=== PATIENT | female | born 2000 | race Caucasian/White ===

== ENCOUNTER 2022-04-08 13:46 | Emergency (ER) | payer OTHER ==
[2022-04-08 13:56] VITALS: BP 128/85; PULSE 98; RESP 16; TEMP 97.4
--- NOTE | 2022-04-08 14:29 | ED ---
Psych HPI - General Chief Complaint: Psychiatric Symptoms Stated Complaint: Mental health eval Time Seen by Provider: 04/08/22 13:57 Source: patient Mode of arrival: ambulatory - History of Present Illness Initial Comments: Patient is a 21-year-old female presenting for mental health evaluation. Patient has recently been experiencing difficulty coping after stressful life events. Patient was recently in 10 day outpatient program for increased anxiety and depression, she was started on Geodon. When she followed up with her psychiatrist after this program she was taken off of Geodon and started on Depakote. Patient states that "I just want to give up". She denies any suicidal thoughts or plan, no homicidal ideation. No hallucinations. No physical complaints at this time. - Related Data Previous Rx's Medication Instructions Recorded LORazepam [Ativan] 1 mg PO HS 3 Days #3 tab 04/08/22 Allergies Allergy/AdvReac Type Severity Reaction Status Date / Time No Known Allergies Allergy Verified 04/08/22 13:56 Review of Systems ROS Statement: Those systems with pertinent positive or pertinent negative responses have been documented in the HPI. ROS Other: All systems not noted in ROS Statement are negative. Past Medical History Past Medical History: No Reported History History of Any Multi-Drug Resistant Organisms: None Reported Past Surgical History: No Surgical Hx Reported Past Psychological History: Anxiety, Bipolar, Depression Smoking Status: Never smoker Past Alcohol Use History: None Reported Past Drug Use History: None Reported General Exam Limitations: no limitations General appearance: alert, anxious (tearful) Head exam: Present: atraumatic, normocephalic, normal inspection Eye exam: Present: normal appearance Neck exam: Present: normal inspection Respiratory exam: Present: normal lung sounds bilaterally. Absent: respiratory distress, wheezes, rales, rhonchi, stridor Cardiovascular Exam: Present: regular rate, normal rhythm, normal heart sounds. Absent: systolic murmur, diastolic murmur, rubs, gallop, clicks Extremities exam: Present: normal inspection, full ROM Neurological exam: Present: alert, oriented X3, CN II-XII intact Psychiatric exam: Present: anxious Skin exam: Present: warm, dry, intact, normal color. Absent: rash Course Vital Signs 04/08/22 13:51 Temperature 97.4 F L Pulse Rate 98 Respiratory 16 Rate Blood Pressure 128/85 O2 Sat by Pulse 97 Oximetry Medical Decision Making - Medical Decision Making Patient is a 21-year-old female presenting for mental health evaluation. She's been experiencing increased anxiety and depression. No suicidal ideation or homicidal ideation. Patient has no physical complaints at this time. Physical examination was unremarkable. UA and urine hCG are negative. Urine toxicology is positive for THC. Patient was evaluated by EPS, it was decided that she will follow-up with her psychiatrist outpatient setting to address medication changes, she woke be provided with a short course of Ativan for increased anxiety. Follow-up with PCP. Report back to ER with any new or worsening symptoms. Discussed return parameters and answered all questions. Patient conveyed verbal understanding and agreed to the plan. I discussed this case in detail with my attending Dr. Hunt - Lab Data Lab Results 04/08/22 04/08/22 04/08/22 Range/Units 14:40 14:40 14:40 Urine Color Light Yellow Urine Appearance Clear (Clear) Urine pH 6.5 (5.0-8.0) Ur Specific [place] 1.014 (1.001-1.035) Urine Protein Negative (Negative) Urine Glucose (UA) Negative (Negative) Urine Ketones Negative (Negative) Urine Blood Negative (Negative) Urine Nitrite Negative (Negative) Urine Bilirubin Negative (Negative) Urine Urobilinogen <2.0 (<2.0) mg/dL Ur Leukocyte Esterase Negative (Negative) Urine HCG, Qual Not Detected (Not Detectd) Urine Opiates Screen Not Detected (NotDetected) Ur Oxycodone Screen Not Detected (NotDetected) Urine Methadone Screen Not Detected (NotDetected) Ur Propoxyphene Screen Not Detected (NotDetected) Ur Barbiturates Screen Not Detected (NotDetected) U Tricyclic Antidepress Not Detected (NotDetected) Ur Phencyclidine Scrn Not Detected (NotDetected) Ur Amphetamines Screen Not Detected (NotDetected) U Methamphetamines Scrn Not Detected (NotDetected) U Benzodiazepines Scrn Not Detected (NotDetected) Urine Cocaine Screen Not Detected (NotDetected) U Marijuana (THC) Screen Detected H (NotDetected) Disposition Clinical Impression: Acute anxiety Disposition: HOME SELF-CARE Condition: Good Instructions (If sedation given, give patient instructions): Depression (ED), Anxiety (ED), Anxiolysis in Adults (ED) Additional Instructions: Follow-up with psychiatrist. Report back to ER with any new or worsening symptoms. Take medication as prescribed. Prescriptions: LORazepam [Ativan] 1 mg PO HS 3 Days #3 tab Is patient prescribed a controlled substance at d/c from ED?: No Referrals: Nonstaff,Physician [REFERRING] - 1-2 days Time of Disposition: 17:41
[2022-04-08 14:44] LABS: Appearance,Urine Clear (Clear); Bilirubin,Urine Negative (Negative); Blood,Urine Negative (Negative); Color,Urine Light Yellow; Glucose,Urine (UA) Negative (Negative); Ketones,Urine Negative (Negative); Leukocyte Esterase,Urine Negative (Negative); Nitrite,Urine Negative (Negative); PH, Urine 6.5 (5.0-8.0); Protein,Urine Negative (Negative); Specific Gravity,Urine 1.014 (1.001-1.035); Urobilinogen,Urine <2.0 mg/dL (<2.0)
[2022-04-08 14:55] LABS: Amphetamine Screen,Urine Not Detected (NotDetected); Barbiturate Screen,Urine Not Detected (NotDetected); Benzodiazepines Screen,Urine Not Detected (NotDetected); Cocaine Screen,Urine Not Detected (NotDetected); Methadone Screen, Urine Not Detected (NotDetected); Opiate Screen,Urine Not Detected (NotDetected); Oxycodone Screen, Urine Not Detected (NotDetected); Phencyclidine Screen,Urine Not Detected (NotDetected); Tricyclic Antidepressant,Urine Not Detected (NotDetected); Urn Cannabinoid Scrn Detected (NotDetected)
[2022-04-08] MEDS ORDERED: ALPRAZolam 0.25 MG TAB PO STA (16:24)
== END 2022-04-08 18:10 | disposition home or self-care (01) ==
LOC: EC 13:46
DX: F41.9 Anxiety disorder, unspecified (principal)
CPT/HCPCS: 80306; 81003; 81025; 82075; 99284

== ENCOUNTER 2022-04-10 18:40 | Inpatient (IN) | payer OTHER ==
--- NOTE | 2022-04-10 19:21 | ED ---
General Adult HPI - General Chief complaint: Psychiatric Symptoms Stated complaint: mental health Time Seen by Provider: 04/10/22 18:51 Source: patient, RN notes reviewed Mode of arrival: ambulatory Limitations: no limitations - History of Present Illness Initial comments: Patient is a pleasant 21-year-old female presenting to the emergency department with concern for labile emotions. Symptoms have progressed especially over the past week. Patient is a frequently tearful. Patient gets easily angered. Patient had recent change in her medications. No suicidal or homicidal ideation. Patient does have racing thoughts and decreased ability to con centrate. Decreased appetite. - Related Data Home Medications Medication Instructions Recorded Confirmed Lo Loestrin Fe 1-10 1 tab PO DAILY 04/10/22 04/10/22 Previous Rx's Medication Instructions Recorded QUEtiapine [SEROquel] 100 mg PO HS 30 Days tab 04/13/22 Venlafaxine HCl ER [Effexor XR] 75 mg PO DAILY 30 Days cap 04/13/22 Allergies Allergy/AdvReac Type Severity Reaction Status Date / Time hydroxyzine AdvReac blurred Verified 04/10/22 20:25 vision Review of Systems ROS Statement: Those systems with pertinent positive or pertinent negative responses have been documented in the HPI. ROS Other: All systems not noted in ROS Statement are negative. Constitutional: Denies: fever Eyes: Denies: eye pain ENT: Denies: ear pain Respiratory: Denies: dyspnea Cardiovascular: Denies: chest pain Endocrine: Denies: fatigue Gastrointestinal: Denies: vomiting Genitourinary: Denies: dysuria Musculoskeletal: Denies: back pain Skin: Denies: rash Psychiatric: Reports: as per HPI, anxiety Past Medical History Past Medical History: No Reported History History of Any Multi-Drug Resistant Organisms: None Reported Past Surgical History: No Surgical Hx Reported Past Psychological History: Anxiety, Bipolar, Depression Smoking Status: Never smoker Past Alcohol Use History: None Reported Past Drug Use History: None Reported General Exam Limitations: no limitations General appearance: alert, in no apparent distress Head exam: Present: normocephalic Eye exam: Present: normal appearance Neck exam: Present: normal inspection Respiratory exam: Present: normal lung sounds bilaterally Cardiovascular Exam: Present: regular rate, normal rhythm GI/Abdominal exam: Present: soft. Absent: tenderness Extremities exam: Present: normal inspection Neurological exam: Present: alert Psychiatric exam: Present: depressed Skin exam: Present: normal color Course Vital Signs 04/10/22 04/11/22 18:47 02:21 Temperature 98.2 F Pulse Rate 91 62 Respiratory 18 15 Rate Blood Pressure 104/70 119/72 O2 Sat by Pulse 99 98 Oximetry Medical Decision Making - Lab Data Result diagrams: 04/12/22 08:38 04/12/22 08:38 Lab Results 04/10/22 04/11/22 Range/Units 20:00 00:23 Urine Opiates Screen Not Detected (NotDetected) Ur Oxycodone Screen Not Detected (NotDetected) Urine Methadone Screen Not Detected (NotDetected) Ur Propoxyphene Screen Not Detected (NotDetected) Ur Barbiturates Screen Not Detected (NotDetected) U Tricyclic Antidepress Not Detected (NotDetected) Ur Phencyclidine Scrn Not Detected (NotDetected) Ur Amphetamines Screen Not Detected (NotDetected) U Methamphetamines Scrn Not Detected (NotDetected) U Benzodiazepines Scrn Detected H (NotDetected) Urine Cocaine Screen Not Detected (NotDetected) U Marijuana (THC) Screen Detected H (NotDetected) Coronavirus (PCR) Not Detected (Not Detectd) Disposition Clinical Impression: Depression, Suicidal ideation Disposition: ADMITTED IP TO THIS HOSP Is patient prescribed a controlled substance at d/c from ED?: No
[2022-04-10 20:41] LABS: Amphetamine Screen,Urine Not Detected (NotDetected); Barbiturate Screen,Urine Not Detected (NotDetected); Benzodiazepines Screen,Urine Detected (NotDetected); Cocaine Screen,Urine Not Detected (NotDetected); Methadone Screen, Urine Not Detected (NotDetected); Opiate Screen,Urine Not Detected (NotDetected); Oxycodone Screen, Urine Not Detected (NotDetected); Phencyclidine Screen,Urine Not Detected (NotDetected); Tricyclic Antidepressant,Urine Not Detected (NotDetected); Urn Cannabinoid Scrn Detected (NotDetected)
[2022-04-10] MEDS ORDERED: ZIPRASIDONE 20 MG CAP PO STA (22:57)
[2022-04-10] MEDS ORDERED: DIVALPROEX 250 MG TABLET.DR PO STA (22:58)
[2022-04-11] MEDS ORDERED: LORazepam 1 MG TAB PO STA (00:27)
[2022-04-11] MEDS ORDERED: MAGNESIUM HYDROXIDE 2,400 MG/10 ML CUP PO PRN (02:00)
[2022-04-11] MEDS ORDERED: ACETAMINOPHEN TAB 325 MG TAB PO PRN (02:00)
[2022-04-11] MEDS ORDERED: MAG HYDROX/AL HYDROX/SIMETH 30 ML CUP PO PRN (02:00)
[2022-04-11] MEDS ORDERED: LORazepam 1 MG/0.5 ML VIAL IM PRN (02:05)
[2022-04-11] MEDS ORDERED: haloperidoL 5 MG TAB PO PRN (02:06)
[2022-04-11] MEDS ORDERED: HALOPERIDOL LACTATE 5 MG/ML 1 ML VIAL IM PRN (02:06)
[2022-04-11] MEDS ORDERED: LO LOESTRIN FE PO SCH (09:00)
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
[2022-04-11] MEDS: VENLAFAXINE HCL ER 37.5 MG CAP PO SCH (14:53)
[2022-04-11] MEDS: LO LOESTRIN FE PO SCH (14:53)
[2022-04-11 15:23] VITALS: BMI 18.5
[2022-04-11] MEDS ORDERED: DICYCLOMINE 10 MG CAP PO PRN (16:41)
--- NOTE | 2022-04-11 16:44 | P.CONS ---
History of Present Illness - Reason for Consult Consult date: 04/11/22 - History of Present Illness Patient is a 21-year-old female with PMH of IBS that presents the ED for behavioral disturbances. She has been admitted to mental health unit for further management of symptoms. [facility] has been consulted for medical management of this patient. Patient has no complaints today. She reports a history of abdominal cramping when she eats too little or too much. Patient denies alcohol and tobacco use. She reports occasional marijuana use. Patient currently denies any headache, lower extremity edema, nausea vomiting, fever chills, cough, chest pain, shortness of breath, palpitations, changes in urination or bowel habits. No changes in appetite or weight. She denies any dizziness, numbness/weakness/tingling of the extremities. Review of systems is performed and is negative except above. General: non toxic, no distress, appears at stated age Derm: warm, dry Head: atraumatic, normocephalic, symmetric Eyes: EOMI, no lid lag, anicteric sclera Mouth: no lip lesion, mucus membranes moist Cardiovascular: S1S2 reg, no murmur, positive posterior tibial pulse bilateral Lungs: CTA bilateral, no rhonchi, no rales , no accessory muscle use Abdominal: soft, nontender to palpation, no guarding, no appreciable organomegaly Ext: no gross muscle atrophy, no edema, no contractures Neuro: CN II-XI grossly intact, no focal neuro deficits Psych: Alert, oriented, appropriate affect #Irritable bowel syndrome #Marijuana abuse Bentyl as needed. Patient has been encouraged to stop using illicit substances. Thank you for this consultation. Please call [facility] with additional questions or concerns. Past Medical History Past Medical History: No Reported History History of Any Multi-Drug Resistant Organisms: None Reported Past Surgical History: No Surgical Hx Reported Past Psychological History: Anxiety, Bipolar, Depression Smoking Status: Never smoker Past Alcohol Use History: None Reported Past Drug Use History: None Reported Medications and Allergies Home Medications Medication Instructions Recorded Confirmed Type LORazepam [Ativan] 1 mg PO HS 3 Days #3 tab 04/08/22 04/10/22 Rx ALPRAZolam [Xanax] 0.25 mg PO BID PRN 04/10/22 04/10/22 History Divalproex [Depakote] 250 mg PO HS 04/10/22 04/10/22 History Lo Loestrin Fe 1-10 1 tab PO DAILY 04/10/22 04/10/22 History Ziprasidone [Geodon] 20 mg PO HS 04/10/22 04/10/22 History Allergies Allergy/AdvReac Type Severity Reaction Status Date / Time hydroxyzine AdvReac blurred Verified 04/10/22 20:25 vision Physical Exam Vitals: Vital Signs Temp Pulse Pulse Resp BP BP Pulse Ox 04/11/22 08:00 97.8 F 70 15 98 04/11/22 03:02 98.2 F 76 18 116/72 04/11/22 02:21 62 15 119/72 98 04/10/22 18:47 98.2 F 91 18 104/70 99 Intake and Output 04/11/22 04/11/22 04/11/22 06:59 14:59 22:59 Other: Weight 44.452 kg 44.452 kg Results Labs: Abnormal Lab Results - Last 24 Hours (Table) 04/10/22 Range/Units 20:00 U Benzodiazepines Scrn Detected H (NotDetected) U Marijuana (THC) Screen Detected H (NotDetected)
[2022-04-11] MEDS ORDERED: QUEtiapine 50 MG TAB PO SCH (21:00)
[2022-04-11] MEDS: LORazepam 1 MG TAB PO PRN (22:28)
[2022-04-12] MEDS: VENLAFAXINE HCL ER 37.5 MG CAP PO SCH (08:28)
[2022-04-12] MEDS: LORazepam 1 MG TAB PO PRN ×2 (08:29→21:23)
[2022-04-12] MEDS: LO LOESTRIN FE PO SCH (08:30)
[2022-04-12 09:43] LABS: Basophils # (A) 0.1 k/uL (0-0.2); Basophils % (A) 1 %; Eosinophils # (A) 0.2 k/uL (0-0.7); Eosinophils % (A) 2 %; HCT 42.2 % (34.0-46.0); HGB 14.4 gm/dL (11.4-16.0); Lymphocytes # (A) 2.4 k/uL (1.0-4.8); Lymphocytes % (A) 29 %; MCH 31.6 pg (25.0-35.0); MCHC 34.1 g/dL (31.0-37.0); MCV 92.5 fL (80.0-100.0); Mean Platelet Volume 7.6; Monocytes # (A) 0.3 k/uL (0-1.0); Monocytes % (A) 4 %; Neutrophils # (A) 5.3 k/uL (1.3-7.7); Neutrophils % (A) 63 %; Platelet Count 286 k/uL (150-450); RBC 4.56 m/uL (3.80-5.40); RDW 11.9 % (11.5-15.5); WBC 8.3 k/uL (4.0-11.0)
[2022-04-12 09:57] LABS: ALT 13 U/L (4-34); AST 24 U/L (14-36); African American GFR (CKD) >90 (>60 ml/min/1.73 sqM); Albumin 4.9 g/dL (3.5-5.0); Alkaline Phosphatase 62 U/L (38-126); Anion Gap 8 mmol/L; Blood Urea Nitrogen 14 mg/dL (7-17); Calcium 9.8 mg/dL (8.4-10.2); Carbon Dioxide 26 mmol/L (22-30); Chloride 105 mmol/L (98-107); Glucose 96 mg/dL (74-99); Non-African American GFR(CKD) >90 (>60 ml/min/1.73 sqM); Potassium 4.5 mmol/L (3.5-5.1); Sodium 139 mmol/L (137-145); Total Protein 7.6 g/dL (6.3-8.2)
--- NOTE | 2022-04-12 10:02 | P.PN ---
Progress Note - Text Progress Note Date: 04/12/22 Interval History: Patient was seen attending group today and was directable and agreeable to speak with handbook writer in the office. Patient appears to be less tearful today during conversation. She was also less argumentative/irritable with handbook writer. She did state that her grandmother was not able to see her yesterday which she feels thought about. She claims that she is trying to be patient with the medications. She states that she did not sleep well last night and was "tossing and turning". She states that she slept only about 5 hours last night. She states that her anxiety level was high this morning however after taking the Effexor it improved. She states that her appetite is fair at this time. She is trying to go to groups and stay motivated however continues to deal with depression and anxiety. At this time patient denies any current suicidal or homical ideations, intent or plan. Patient denies any auditory, visual hallucinations and denies any paranoia or delusions. Patient denies any side effects from the medications and has been compliant with meds. Mental Status Exam: General Appearance: Patient appears to be thin, short in stature, stated age is alert, less argumentative. Patient appears to have fair hygiene and grooming. Behavior: Patient is seated without any agitated behavior. less Tearful. less Argumentative. Speech: Patient's speech is fluent and nonpressured. Mood/Affect: Patient reports their mood is depressed and anxious, improving mildly, affect is congruent and constricted. Suicidality/Homicidality: Patient denies having any homicidal ideation intent or plan. Denies any suicidal ideations intent or plan Perceptions: Patient denies any visual hallucinations and denies any auditory hallucinations Though content/process: There is no evidence of any delusional thought content and thought process is linear and goal-directed. focused on her medications, improving today Memory and concentration: AOX3, grossly intact for the purposes of this session Judgment and insight: poor, improving mildly IMPRESSIONS: Bipolar disorder, depressed Borderline personality traits Plan: -Patient continues to meet criteria for inpatient psychiatric admission for symptom stabilization and safety. Patient has signed adult voluntary form and medication consent and was placed in patient's chart. -Medications: Increase Seroquel to 75 mg daily at bedtime for insomnia/mood stabilization. Increase Effexor to 75 mg daily for mood/anxiety. -When necessary Ativan and Haldol for agitation/aggression. -NRT - not needed as patient does not smoke. -SW on board for discharge planning. Encouraged the patient to participate in milieu.
[2022-04-12] MEDS ORDERED: QUEtiapine 25 MG TAB PO SCH (21:00)
[2022-04-13] MEDS: LO LOESTRIN FE PO SCH (08:54)
[2022-04-13] MEDS: VENLAFAXINE HCL ER 75 MG CAP PO SCH (08:54)
[2022-04-13] MEDS ORDERED: traZODone HCL 50 MG TAB PO PRN (10:22)
--- NOTE | 2022-04-13 10:45 | P.PN ---
Progress Note - Text Progress Note Date: 04/13/22 Interval History: Patient was seen attending group today and was directable and agreeable to speak with writer technical publications in the office. Patient was initially fairly cooperative with writer technical publications during conversation" continues to be focused on discharge. She gradually became more irritable and tearful. She states that she took the Seroquel last night however did not sleep much with her and required Ativan as well to actually sleep. She states that she is unsure whether she can sleep or not without the Ativan. She claims that she is tolerating the medications fairly well at this time. She continues to be argumentative about discharge and cried in her seat repeatedly stating that "being here is making me worse". She claims that "all your patients hate you" to writer technical publications and was refusing to leave the office as she was getting more hostile with writer technical publications. She states that her appetite is fair at this time. She is trying to go to groups and stay motivated. continues to deal with depression and anxiety. At this time patient denies any current suicidal or homical ideations, intent or plan. Patient denies any auditory, visual hallucinations and denies any paranoia or delusions. Patient denies any side effects from the medications and has been compliant with meds. Mental Status Exam: General Appearance: Patient appears to be thin, short in stature, stated age is alert, argumentative today, hostile. Patient appears to have fair hygiene and grooming. Behavior: Patient is seated without any agitated behavior. Tearful. Argumentative. refusing to leave the office. Speech: Patient's speech is fluent and nonpressured. Mood/Affect: Patient reports their mood is improving mildly, affect is congruent and constricted. Suicidality/Homicidality: Patient denies having any homicidal ideation intent or plan. Denies any suicidal ideations intent or plan Perceptions: Patient denies any visual hallucinations and denies any auditory hallucinations Though content/process: There is no evidence of any delusional thought content and thought process is linear and goal-directed. focused on her medications, improving today Memory and concentration: AOX3, grossly intact for the purposes of this session Judgment and insight: poor/superficial, improving mildly IMPRESSIONS: Bipolar disorder, depressed Borderline personality traits Plan: -Patient continues to meet criteria for inpatient psychiatric admission for symptom stabilization and safety. Patient has signed adult voluntary form and medication consent and was placed in patient's chart. -Medications: Increase Seroquel to 100 mg daily at bedtime for insomnia/mood stabilization and can continue increasing if needed/tolerated. continue Effexor 75 mg daily for mood/anxiety. start trazodone 50 mg qhs prn for insomnia. -When necessary Ativan and Haldol for agitation/aggression. -NRT - not needed as patient does not smoke. -SW on board for discharge planning. Encouraged the patient to participate in milieu. likely discharge saturday-saturday if patient is improving.
[2022-04-13] MEDS: QUEtiapine 100 MG TAB PO SCH (20:45)
[2022-04-13] MEDS: LORazepam 0.5 MG TAB PO PRN (21:28)
[2022-04-14] MEDS: LORazepam 0.5 MG TAB PO PRN ×2 (08:46→21:51)
[2022-04-14] MEDS: VENLAFAXINE HCL ER 75 MG CAP PO SCH (08:46)
[2022-04-14] MEDS: LO LOESTRIN FE PO SCH (08:46)
[2022-04-14 16:26] LABS: Appearance,Urine Clear (Clear); Bilirubin,Urine Negative (Negative); Blood,Urine Negative (Negative); Color,Urine Light Yellow; Glucose,Urine (UA) Negative (Negative); Ketones,Urine Negative (Negative); Leukocyte Esterase,Urine Negative (Negative); Nitrite,Urine Negative (Negative); Protein,Urine Negative (Negative); Specific Gravity,Urine 1.019 (1.001-1.035); Urobilinogen,Urine <2.0 mg/dL (<2.0)
[2022-04-14] MEDS: QUEtiapine 100 MG TAB PO SCH (20:51)
[2022-04-14] MEDS: BENZTROPINE MESYLATE 0.5 MG TAB PO SCH (21:56)
--- NOTE | 2022-04-14 23:23 | P.PN ---
Progress Note - Text Progress Note Date: 04/14/22 Interval history: Patient was seen wandering the hallways and was directable and agreeable to speak with contract technical writer. She reports her mood is "very good", is smiling on assessment, appears to be minimizing her symptoms in hopes of discharge, appears superficial and childlike, tends to externalize blame, and later in the day is reported to be tearful, stating she wants discharge. At this time, patient denies any suicidal or homicidal ideation, intent or plan. Denies any auditory or visual hallucinations. Patient reports the Seroquel is giving her restless legs. We discussed a trial of Cogentin and she agrees. Mental status exam: General Appearance: Patient appears to be stated age, slender female, dressed in casual attire. Behavior: No agitated behavior. Patient is calm and directable, social with peers. Speech: Patient's speech is fluent and non-pressured. Mood/Affect: Mood is improving mildly"very good", affect is labile. SI/HI: Patient denies having any suicidal or homicidal ideation intent or plan. Perceptions: Patient denies any auditory or visual hallucinations. Though content/process: There is no evidence of any delusional thought content, she tends to externalize blame, and thought process is linear and goal-directed. Memory and concentration: AOX3, grossly intact for the purposes of this session Judgment and insight: poor, improving mildly Assessment/Plan: Continue with current diagnosis. Patient continues to meet criteria for inpatient psychiatric admission for symptom stabilization and safety. Start Cogentin 0.5 mg QHS for EPS. Monitor for medication compliance and for any psychotropic medication side effects. Will continue to monitor ongoing response to treatment. Encouraged participation in milieu.
[2022-04-15] MEDS: LO LOESTRIN FE PO SCH (09:02)
[2022-04-15] MEDS: VENLAFAXINE HCL ER 75 MG CAP PO SCH (09:03)
[2022-04-15] MEDS: LORazepam 0.5 MG TAB PO PRN (09:04)
[2022-04-15] MEDS: QUEtiapine 100 MG TAB PO SCH (20:14)
[2022-04-15] MEDS: BENZTROPINE MESYLATE 0.5 MG TAB PO SCH (20:14)
--- NOTE | 2022-04-15 22:07 | P.PN ---
Progress Note - Text Progress Note Date: 04/15/22 Interval history: Patient was seen attending group and was directable and agreeable to speak with insurance writer. She reports her mood is "really good", is smiling on assessment. She started the Cogentin 0.5 mg QHS last night and today reports the restless legs has resolved and is agreeable to continue on the Seroquel 100 mg QHS. At this time, patient denies any suicidal or homicidal ideation, intent or plan. Denies any auditory or visual hallucinations. She does complain a peer on the unit has inappropriate boundaries and is hugging the females and making sexual jokes which is making her feel uncomfortable. This concern was discussed with the nursing staff and appropriate action was taken. Mental status exam: General Appearance: Patient appears to be stated age, slender female, dressed in casual attire. Behavior: No agitated behavior. Patient is calm and directable, social with peers, attending groups. Speech: Patient's speech is fluent and non-pressured. Mood/Affect: Mood is improving mildly "really good", affect is congruent. SI/HI: Patient denies having any suicidal or homicidal ideation intent or plan. Perceptions: Patient denies any auditory or visual hallucinations. Though content/process: There is no evidence of any delusional thought content, and thought process is linear and goal-directed. Memory and concentration: AOX3, grossly intact for the purposes of this session Judgment and insight: improving mildly Assessment/Plan: Continue with current diagnosis. Patient continues to meet criteria for inpatient psychiatric admission for symptom stabilization and safety. Continue current medications. Monitor for medication compliance and for any psychotropic medication side effects. Will continue to monitor ongoing response to treatment. Encouraged participation in milieu.
[2022-04-16 06:19] VITALS: BP 113/70; PULSE 115; RESP 16; TEMP 97.6
[2022-04-16] MEDS: LORazepam 0.5 MG TAB PO PRN (06:23)
[2022-04-16] MEDS: LO LOESTRIN FE PO SCH (08:59)
[2022-04-16] MEDS: VENLAFAXINE HCL ER 75 MG CAP PO SCH (08:59)
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
== END 2022-04-16 12:57 | disposition home or self-care (01) | DRG 885 ==
LOC: EC 18:40 → 3MHU 04-11 01:58
PROVIDERS: ADMIT Psychiatry & Neurology Psychiatry; ATTEND Psychiatry & Neurology Psychiatry
DX: F31.30 Bipolar disorder, current episode depressed, mild or moderate severity, unspecified (principal); R45.851 Suicidal ideations; F41.9 Anxiety disorder, unspecified; F60.3 Borderline personality disorder; G25.81 Restless legs syndrome; G47.00 Insomnia, unspecified; Z79.899 Other long term (current) drug therapy; Z20.822 Contact with and (suspected) exposure to COVID-19; Z28.310 Unvaccinated for COVID-19; Z28.21 Immunization not carried out because of patient refusal; Y09 Assault by unspecified means
CPT/HCPCS: 80053; 80306; 81003; 81025; 82075; 83036; 84443; 85025; 87635; 99285